=== PATIENT | male | born 1950 | race Caucasian/White ===

== ENCOUNTER 2017-05-29 13:40 | Inpatient (IN) | payer OTHER ==
[~2017-05-29] VITALS: Ht 180.3 cm; Wt 102.5 kg
[~2017-05-29 13:40] MED LIST: ASPIR-LOW81 M1 PO; GLIPIZIDE5 M1 PO; GLUCOPHAGE1000 MG PO; PRAVACHOL80 MG PO; PRINIVIL10 MG PO; PROTONIX20 MG PO; TRIGLIDE160 MG PO
[2017-05-29 15:11] LABS: BASE EXCESS 1.8 mEq/L (-3 to +3); BICARBONATE 24.4 mEq/L (22-26); CARBOXY HGB 1.8 % (0-5); COMMENTS - BLOOD GASES A+C+; DEVICE NC; O2 FLOW 2 L/MIN; PCO2 32 mm Hg (35-45); PO2 59 mm Hg (80-100); SITE RR; pH 7.49 (7.35-7.45)
[2017-05-29 15:33] LABS: EOSINOPHIL (%) 0.1 % (0-5); HEMATOCRIT 44.3 % (38.0-50.0); IMMATURE GRANULOCYTE (%) 0.4 % (0.0-0.7); INSTRUMENT ABS NEUTROPHIL CT 8.8 K/uL; MCH 32.2 PG (29.0-34.0); MCHC 35.2 G/DL (30.0-36.0); MCV 91.5 FL (86-99); MEAN PLAT.VOLUME 11.9 uM^3 (9.0-12.4); MONOCYTE (%) 6.5 % (3-12); MONOCYTE COUNT 0.7 K/uL (0-0.8); NEUTROPHIL COUNT 8.8 K/uL (1.8-6.4); PLATELET COUNT 194 K/uL (156-360); RBC DIS.WIDTH-SD 40.2 % (39-53); RED BLOOD COUNT 4.84 M/uL (4.00-5.50); WHITE BLOOD COUNT 10.5 K/uL (4.1-10.2)
[2017-05-29 15:39] LABS: INTER. NORMALIZED RATIO 1.1
[2017-05-29 15:41] LABS: CHLORIDE 102 mEq/L (99-109); POTASSIUM 4.2 mEq/L (3.7-5.4); PTT 28.1 SEC (25-37); SODIUM 132 mEq/L (136-147)
[2017-05-29 15:43] LABS: GLUCOSE 164 mg/dL (70-99)
[2017-05-29 15:45] LABS: ANION GAP 8 MEQ/L (2-14); TOTAL BILIRUBIN 1.7 mg/dL (0.0-1.0)
[2017-05-29 15:47] LABS: ALKALINE PHOSPHATASE 33 IU/L (3-129); GFR ESTIMATE (CALCULATED) > 59 mL/min/
[2017-05-29 15:48] LABS: UREA NITROGEN (BUN) 13 mg/dL (9-23)
[2017-05-29 15:53] LABS: TROP-I INTERPRETATION NEGATIVE; TROPONIN-I 0.05 ng/mL (0.0-0.30)
[2017-05-29 16:29] LABS: ADD MIUA? NO; BILIRUBIN NEGATIVE; BLOOD NEGATIVE; COLOR YELLOW ((YELLOW)); GLUCOSE (STRIP) NEGATIVE; KETONES NEGATIVE; LEUKOCYTES NEGATIVE; NITRITE NEGATIVE; PROTEIN (STRIP) NEGATIVE; SPECIFIC GRAVITY 1.019 (1.000-1.030); UCUL ADDED? NO; UROBILINOGEN 0.2 MG/DL (0.2-1.0)
[2017-05-29] MEDS ORDERED: GLIPIZIDE5 MG PO (19:49)
[2017-05-29] MEDS ORDERED: FENOFIBRATE160 M1 PO (19:51)
[2017-05-29] MEDS ORDERED: VITAMIN D31000 UNI2 PO (19:53)
[2017-05-29] MEDS ORDERED: DAILY MULTIPLE1 EACH PO (19:53)
[2017-05-29 20:30] VITALS: BP 143/68
[2017-05-29 20:56] LABS: POINT-OF-CARE METER ID UU13113698
[2017-05-29 22:19] LABS: POINT-OF-CARE METER ID UU13113698
[2017-05-29 22:33] LABS: TROP-I INTERPRETATION NEGATIVE; TROPONIN-I 0.05 ng/mL (0.0-0.30)
[2017-05-29 22:34] LABS: HDL CHOLESTEROL 28 MG/DL (Desirable>=40); LDL CHOLESTEROL 61 mg/dL (Desirable<100); NON-HDL CHOLESTEROL 79 mg/dL (Desirable<160); TOTAL CHOLESTEROL 107 mg/dL (Desirable<200); TRIGLYCERIDES 90 MG/DL (Normal: <150)
[2017-05-29 23:36] VITALS: BP 154/67
[2017-05-30 00:22] LABS: INFLUENZA A VIRAL ANTIGEN NEGATIVE; INFLUENZA B VIRAL ANTIGEN NEGATIVE
[2017-05-30 04:26] VITALS: BP 143/65
[2017-05-30 05:44] LABS: TROP-I INTERPRETATION NEGATIVE; TROPONIN-I 0.05 ng/mL (0.0-0.30)
[2017-05-30 06:04] LABS: ANION GAP 9 MEQ/L (2-14); CHLORIDE 106 MEQ/L (99-109); GFR ESTIMATE (CALCULATED) > 59 mL/min/; GLUCOSE 122 mg/dL (70-99); POTASSIUM 3.7 MEQ/L (3.7-5.4); SAMPLE HEMOLYSIS CHECK 0; SAMPLE ICTERIC CHECK 0; SAMPLE LIPEMIA CHECK 0; SODIUM 137 MEQ/L (136-147); UREA NITROGEN (BUN) 11 mg/dL (9-23)
[2017-05-30 06:14] LABS: HEMATOCRIT 38.6 % (38.0-50.0); MCH 32.4 PG (29.0-34.0); MCHC 34.7 G/DL (30.0-36.0); MCV 93.5 FL (86-99); MEAN PLAT.VOLUME 12.1 uM^3 (9.0-12.4); PLATELET COUNT 161 K/uL (156-360); RBC DIS.WIDTH-CV 12.2 % (11.8-14.6); RBC DIS.WIDTH-SD 41.6 % (39-53); RED BLOOD COUNT 4.13 M/uL (4.00-5.50); WHITE BLOOD COUNT 8.1 K/uL (4.1-10.2)
[2017-05-30 07:29] LABS: Estimated Average Glucose 148 mg/dL (70-123); HEMOGLOBIN A1c (GLYCOHEMOGLOB) 6.8 % HGB (Below 5.7)
[2017-05-30 07:30] VITALS: BP 140/68
[2017-05-30 08:00] LABS: POINT-OF-CARE METER ID UU13113781
[2017-05-30 11:18] LABS: POINT-OF-CARE METER ID UU13113781
[2017-05-30 11:42] VITALS: BP 127/62
[2017-05-30 15:02] LABS: TROP-I INTERPRETATION NEGATIVE; TROPONIN-I 0.03 ng/mL (0.0-0.30)
[2017-05-30 16:00] VITALS: BP 124/74
[2017-05-30 16:34] LABS: POINT-OF-CARE METER ID UU13113781
[2017-05-30 19:17] VITALS: BP 140/65
[2017-05-30 20:59] LABS: POINT-OF-CARE METER ID UU13113781
[2017-05-30 23:41] VITALS: BP 137/78
[2017-05-31 04:05] VITALS: BP 135/70
[2017-05-31 07:00] VITALS: BP 143/63
[2017-05-31 07:27] LABS: POINT-OF-CARE METER ID UU13113781
[2017-05-31 11:00] VITALS: BP 140/67
[2017-05-31 11:30] LABS: POINT-OF-CARE METER ID UU13113781
[2017-05-31 15:00] VITALS: BP 120/59
[2017-05-31 17:16] LABS: POINT-OF-CARE METER ID UU14174216
[2017-05-31 19:32] VITALS: BP 168/72
[2017-05-31 21:41] LABS: POINT-OF-CARE METER ID UU13113698
[2017-05-31 23:55] VITALS: BP 127/68
[2017-06-01 04:01] VITALS: BP 137/64
[2017-06-01 07:19] VITALS: BP 134/76
[2017-06-01 07:32] LABS: POINT-OF-CARE METER ID UU13113698; POINT-OF-CARE USER ID NUTSLF44
[2017-06-01 11:36] LABS: POINT-OF-CARE METER ID UU14174216
[2017-06-01 11:52] VITALS: BP 162/78
[2017-06-01 15:32] VITALS: BP 156/78
[2017-06-01 16:11] LABS: POINT-OF-CARE METER ID UU14174216; POINT-OF-CARE USER ID 515034806
== END 2017-06-01 18:58 | disposition home or self-care (01) | DRG 871 ==
LOC: EME 13:40 → EDOF 18:59 → 4EAST 18:59 → ENRESERV 19:03 → 4EAST 20:29 → ENRESERV 05-30 17:33 → 4EAST 06-01 18:58
PROVIDERS: Emergency Medicine; Family Medicine
DX: A41.89 Other specified sepsis (principal); L03.114 Cellulitis of left upper limb; L03.012 Cellulitis of left finger; M65.9 Synovitis and tenosynovitis, unspecified; J18.9 Pneumonia, unspecified organism; R09.02 Hypoxemia; I25.10 Atherosclerotic heart disease of native coronary artery without angina pectoris; E11.9 Type 2 diabetes mellitus without complications; I10 Essential (primary) hypertension; I48.2 Chronic atrial fibrillation; K21.9 Gastro-esophageal reflux disease without esophagitis; E78.5 Hyperlipidemia, unspecified; F41.9 Anxiety disorder, unspecified; F17.290 Nicotine dependence, other tobacco product, uncomplicated; R41.0 Disorientation, unspecified; R47.9 Unspecified speech disturbances; Z79.4 Long term (current) use of insulin; Z95.5 Presence of coronary angioplasty implant and graft; Z88.0 Allergy status to penicillin
CPT/HCPCS: 36600; 70450; 71010; 73130; 80048; 80053; 80061; 81003; 82803; 82948; 83036; 83605; 84484; 85025; 85027; 85610; 85730; 87040; 87077; 87186; 87502; 87801; 94640; 94640 76; 99202; 99281; 99285; J0696; J1650; J1815; J3370; J7050